=== PATIENT | male | born 1975 | race Caucasian/White ===

== ENCOUNTER 2016-12-28 17:48 | Emergency (ER) | payer OTHER ==
[~2016-12-28] VITALS: Ht 185.4 cm; Wt 104.3 kg
[2016-12-28 18:00] VITALS: BP 133/92
[2016-12-31 16:32] LABS: Hepatitis B Surface Antibody Positive
== END 2016-12-28 19:49 | disposition home or self-care (01) ==
LOC: ER 17:55
DX: Z77.21 Contact with and (suspected) exposure to potentially hazardous body fluids (principal)
CPT/HCPCS: 36415; 86703; 86706; 86803; 87340